=== PATIENT | female | born 1985 | race Caucasian/White ===

== ENCOUNTER → 2017-01-13 | Outpatient (CLI) | payer MEDICAID | LOC: FIMAGING 09:49 | PROVIDERS: ATTEND Nurse Practitioner | DX: Z12.39 Encounter for other screening for malignant neoplasm of breast (principal); O92.6 Galactorrhea ==

== ENCOUNTER → 2017-04-09 | Outpatient (CLI) | payer MEDICAID | LOC: BMCIMAGING 08:49 | PROVIDERS: ATTEND Nurse Practitioner Women's Health | DX: N94.6 Dysmenorrhea, unspecified (principal) ==

== ENCOUNTER → 2017-07-01 | Outpatient (CLI) | payer MEDICAID | LOC: BMCIMAGING 08:51 | PROVIDERS: ATTEND Advanced Practice Midwife | DX: N94.6 Dysmenorrhea, unspecified (principal); N83.201 Unspecified ovarian cyst, right side ==